=== PATIENT | female | born 1980 | race Two or more races ===

== ENCOUNTER 2020-07-29 12:00 | Day surgery (SDC) | payer OTHER ==
[~2020-07-29 12:00] MED LIST: COZAAR25 MG PO; MULTI-DAY PLUS1 EAC1 PO; WELLBUTRIN XL150 M1 PO
[2020-07-29] MEDS ORDERED: KETO10TA2 PO (17:45)
[2020-07-29] MEDS ORDERED: CODE1TAB37 PO (17:46)
== END 2020-07-29 20:00 | disposition home or self-care (01) ==
LOC: CIR.AMB 12:00
PROVIDERS: ATTEND Obstetrics & Gynecology
DX: N93.8 Other specified abnormal uterine and vaginal bleeding (principal); Z20.822 Contact with and (suspected) exposure to COVID-19